=== PATIENT | male | born 1955 | race Caucasian/White ===

== ENCOUNTER 2019-09-11 16:46 | Emergency (ER) | payer SELFPAY ==
[~2019-09-11] VITALS: Ht 144.8 cm; Wt 59.4 kg
[2019-09-11 16:50] VITALS: BP 179/86
--- NOTE | 2019-09-11 16:54 | NUR ---
PT TAKEN TO BED 9.
--- NOTE | 2019-09-11 16:54 | NUR ---
WILLIAM VASQUEZ, AT BEDSIDE.
[2019-09-11] MEDS ORDERED: cefTRIAXone 1,000 MG in LIDOCAINE MPF 1% 2.1 ML IM ONE (17:00)
--- NOTE | 2019-09-11 17:00 | NUR ---
64 Y/0 M C/O RED RASH THAT STARTED ON HIS ABDOMEN, PATIENT STATES IT SPREAD TO HIS INNER THIGHS. PATIENT STATES RASH ITCHES CONTINUALLY X1 WEEK. PATIENT HAS TRIED A CREAM AT HOME, IT HAS NOT HELPED WITH THE SYMPTOMS. PATIENT DENIES ANY FEVER, CHILLS, N/V. HX: NKA, NO PAST MEDICAL HISTORY
[2019-09-11 17:39] VITALS: BP 179/86
--- NOTE | 2019-09-11 17:40 | NUR ---
Patient discharged with v/s stable. Written and verbal after care instructions given and explained. Patient alert, oriented and verbalized understanding of instructions. Ambulatory with steady gait. All questions addressed prior to discharge. ID band removed. Patient advised to follow up with PMD. Rx of PREDNISONE, BACTRIM, ATARAX, KEFLEX, AND BACITRACIN given. Patient educated on indication of medication including possible reaction and side effects. Opportunity to ask questions provided and answered.
== END 2019-09-11 17:40 | disposition home or self-care (01) ==
LOC: MED 16:46
DX: L03.311 Cellulitis of abdominal wall (principal); L03.116 Cellulitis of left lower limb; L03.115 Cellulitis of right lower limb
CPT/HCPCS: 96372; 99283; J0696; J2001